=== PATIENT | female | born 1975 | race Caucasian/White ===

== ENCOUNTER 2019-01-30 05:12 | Emergency (ER) | payer OTHER ==
--- OUTSIDE RECORDS SUMMARY | 2019-01-30 05:16 | XMS REPORT | Clinical Summary ---
:1975 Author Organization [facility] Address [address] [place] [address] Care Team Providers Name Role Phone Asked, No Pcp Primary Care Provider Unavailable Allergies No Known Allergies Medications Medication Sig Dispensed Refills Start Date End Date Status divalproex (DEPAKOTE) 500 TK 1 T PO HS. 2 11/02/2018 Active MG EC tablet haloperidol (HALDOL) 20 MG TK 1 T PO HS. 2 12/10/2018 Active tablet Active Problems Not on file Encounters Date Type Specialty Care Team Description 01/29/2019 Emergency Emergency Medicine 01/10/2019 Emergency Emergency Medicine Marialuisa Orta, Acute right flank pain (Primary Dx) 12/29/2018 Emergency Emergency Medicine Naz Osei Chest pain, unspecified MD Shadi type (Primary Dx) 05/01/2018 Emergency Emergency Medicine after 01/29/2018 Social History Tobacco Use Types Packs/Day Years Used Date Never Smoker Smokeless Tobacco: Never Used Alcohol Use Drinks/Week oz/Week Comments Yes 1 Cans of beer 0.6 Sex Assigned at Date Recorded Not on file Job Start Date Occupation Industry Not on file Not on file Not on file Travel History Travel Start Travel End No recent travel history available. Last Filed Vital Signs Vital Sign Reading Time Taken Blood Pressure 153/67 01/10/2019 4:29 AM CDT Pulse 95 01/10/2019 4:29 AM CDT Temperature 36.4 C (97.6 F) 01/10/2019 4:29 AM CDT Respiratory Rate 18 01/10/2019 4:29 AM CDT Oxygen Saturation 100% 01/10/2019 4:29 AM CDT Inhaled Oxygen Concentration - - Weight - - Height 165.1 cm (5' 5") 05/01/2018 3:54 PM CDT Body Mass Index - - Plan of Treatment Health Maintenance Due Date Last Done Comments CERVICAL CANCER SCREENING 1998 INFLUENZA VACCINE 04/18/2019 Procedures Procedure Name Priority Date/Time Associated Comments Diagnosis ESTIMATED GFR STAT 01/10/2019 4:50 Results for this AM CDT procedure are in the results section. HCG QUALITATIVE, SERUM STAT 01/10/2019 4:50 Results for this SCREEN AM CDT procedure are in the results section. LIPASE LEVEL STAT 01/10/2019 4:50 Results for this AM CDT procedure are in the results section. AMYLASE LEVEL STAT 01/10/2019 4:50 Results for this AM CDT procedure are in the results section. COMPREHENSIVE METABOLIC STAT 01/10/2019 4:50 Results for this PANEL AM CDT procedure are in the results section. HC COMPLETE BLD COUNT STAT 01/10/2019 4:50 Results for this W/AUTO DIFF AM CDT procedure are in the results section. URINALYSIS SCREEN AND STAT 01/10/2019 4:20 Results for this MICROSCOPY, WITH REFLEX AM CDT procedure are in TO CULTURE the results section. URINE CULTURE STAT 01/10/2019 4:20 Results for this AM CDT procedure are in the results section. CT ANGIOGRAM PE CHEST STAT 12/29/2018 2:56 Results for this AM CDT procedure are in the results section. ESTIMATED GFR STAT 12/29/2018 1:32 Results for this AM CDT procedure are in the results section. ALCOHOL LEVEL, BLOOD STAT 12/29/2018 1:32 Results for this AM CDT procedure are in the results section. HCG QUALITATIVE, SERUM STAT 12/29/2018 1:32 Results for this SCREEN AM CDT procedure are in the results section. B NATRIURETIC PEPTIDE STAT 12/29/2018 1:32 Results for this AM CDT procedure are in the results section. TROPONIN STAT 12/29/2018 1:32 Results for this AM CDT procedure are in the results section. COMPREHENSIVE METABOLIC STAT 12/29/2018 1:32 Results for this PANEL AM CDT procedure are in the results section. HC COMPLETE BLD COUNT STAT 12/29/2018 1:32 Results for this W/AUTO DIFF AM CDT procedure are in the results section. ECG ED PRELIMINARY Routine 12/29/2018 12:46 Results for this INTERPRETATION AM CDT procedure are in the results section. ECG 12-LEAD STAT 12/28/2018 10:31 Results for this PM CDT procedure are in the results section. URINE DRUGS OF ABUSE STAT 12/28/2018 10:20 Results for this SCREEN PM CDT procedure are in the results section. URINALYSIS SCREEN AND STAT 12/28/2018 10:20 Results for this MICROSCOPY, WITH REFLEX PM CDT procedure are in TO CULTURE the results section. HCG QUALITATIVE, URINE STAT 12/28/2018 10:20 Results for this SCREEN PM CDT procedure are in the results section. URINE CULTURE STAT 12/28/2018 10:20 Results for this PM CDT procedure are in the results section. after 01/29/2018 Results Estimated GFR (01/10/2019 4:50 AM CDT)Only the most recent of2 resultswithin the time period is included. Estimated GFR >=90 mL/min/1.73 m2 [facility] CatergoryUnitsInterpretation G1 >=90 Normal or high G2 60-89Mildly decreased [id number] to moderately decreased [id number] to severely decreased G4 15-29Severely decreased G5 <15Kidney failure The eGFR was calculated using the Chronic Kidney Disease Epidemiology Collaboration (CKD-EPI) equation. Interpretation is based on recommendations of the National Kidney Foundation-Kidney Disease Outcomes Quality Initiative (NKF-KDOQI) published in 2014. Specimen Plasma specimen Performing Organization Address City/State/Zipcode Phone Number [facility] DEPARTMENT OF PATHOLOGY [address] [place] [address] AND GENOMIC MEDICINE [facility] [address] [place] [address] HOSPITAL CBC with platelet and differential (01/10/2019 4:50 AM CDT)Only the most recent of2 resultswithin the time period is included. WBC 8.0 4.5 - 11.0 k/uL [facility] RBC 4.15 (L) 4.20 - 5.50 m/uL [facility] HGB 13.0 12.0 - 16.0 g/dL [facility] HCT 39.3 37.0 - 47.0 % [facility] MCV 94.7 82.0 - 100.0 fL [facility] MCH 31.3 27.0 - 34.0 pg [facility] MCHC 33.1 31.0 - 37.0 g/dL [facility] RDW - SD 44.6 37.0 - 55.0 fL [facility] MPV 9.5 6.9 - 11.0 fL [facility] Platelet count 342 150 - 400 K/uL [facility] Nucleated RBC 0.00 /100 WBC [facility] Neutrophils 61.3 39.0 - 69.0 % [facility] Lymphocytes 25.7 25.0 - 45.0 % [facility] Monocytes 9.7 0.0 - 10.0 % [facility] Eosinophils 2.7 0.0 - 5.0 % [facility] Basophils 0.4 0.0 - 1.0 % [facility] Immature granulocytes 0.2 0.0 - 1.0 % [facility] Specimen Blood Performing Organization Address City/[facility] Phone Number [facility] DEPARTMENT OF PATHOLOGY [address] [place] [address] hCG qualitative, serum screen (01/10/2019 4:50 AM CDT)Only the most recent of2 resultswithin the time period is included. hCG qualitative, serum NegativeComment: [facility] Sensitivity of HCG test: [address] [place] [address] mIU/mL Specimen Blood Performing Organization Address City/[facility] Centercode Phone Number [facility] DEPARTMENT OF PATHOLOGY [address] [place] [address] Lipase level (01/10/2019 4:50 AM CDT) Lipase 26 13 - 60 U/L [facility] Specimen Plasma specimen Performing Organization Address City/[facility]/Zipcode Phone Number [facility] DEPARTMENT OF PATHOLOGY [address] [place] [address] Amylase level (01/10/2019 4:50 AM CDT) Amylase 23 13 - 73 U/L [facility] Specimen Plasma specimen Performing Organization Address City/[facility]/Zipcode Phone Number [facility] DEPARTMENT OF PATHOLOGY [facility] [place] [address] AND [facility] MEDICINE [facility] [id number] [place] [address] Comprehensive metabolic panel (01/10/2019 4:50 AM CDT)Only the most recent of2 resultswithin the time period is included. Sodium 137 135 - 148 mEq/L [facility] Potassium 4.0 3.5 - 5.0 mEq/L [facility] Chloride 103 98 - 112 mEq/L [facility] CO2 26 24 - 31 mEq/L [facility] Anion gap 8@ANIO 7 - 15 mEq/L [facility] BUN 9 6 - 20 mg/dL [facility] Creatinine 0.60 0.50 - 0.90 mg/dL [facility] Glucose 108 (H) 65 - 99 mg/dL [facility] Calcium 9.3 8.3 - 10.2 mg/dL [facility] Protein 7.3 6.3 - 8.3 g/dL [facility] Albumin 4.5 3.5 - 5.0 g/dL [facility] A/G ratio 1.6 0.7 - 3.8 [facility] Alkaline phosphatase 50 35 - 104 U/L [facility] AST 18 10 - 35 U/L [facility] ALT 12 5 - 50 U/L [facility] Total bilirubin 0.3 0.2 - 1.2 mg/dL [facility] Specimen Plasma specimen Performing Organization Address City/State/Zipcode Phone Number [facility] DEPARTMENT OF PATHOLOGY [address] [place] [address] AND [facility] [address] Urinalysis screen and microscopy, with reflex to culture (01/10/2019 4:20 AM CDT)Only the most recent of2 resultswithin the time period is included. Specimen site Clean catch [facility] Color, UA Straw [facility] Appearance, UA Clear [facility] Specific gravity, UA 1.003 1.001 - 1.030 [facility] pH, UA 8.0 5.0 - 9.0 [facility] Protein, UA Negative Negative [facility] Glucose, UA Negative Negative [facility] Ketones, UA Negative Negative [facility] Bilirubin, UA Negative Negative [facility] Blood, UA Small (A) Negative [facility] Nitrite, UA Negative Negative [facility] Urobilinogen, UA <2.0 <2.0 E.U./dL [facility] Leukocyte esterase, UA Negative Negative [facility] Epithelial cells, UA 3 /HPF [facility] WBC, UA <1 0 - 4 /HPF [facility] RBC, UA 1 0 - 5 /HPF [facility] Bacteria, UA None seen None seen [facility] Yeast, UA None seen [facility] Yeast with pseudohyphae, UA None seen [facility] Specimen Urine Performing Organization Address City/[facility]ode Phone Number [facility] DEPARTMENT OF PATHOLOGY [id number] [place] [address] Urine culture (01/10/2019 4:20 AM CDT)Only the most recent of2 resultswithin the time period is included. Urine culture SEE COMMENTComment: Bacteriuria [facility] screen negative. HOSPITAL Performing Organization Address City/[facility] Centercond Phone Number [facility] DEPARTMENT OF [facility]OLOGY [id number] [place] [address] Angiogram Pe Chest (12/29/2018 2:56 AM CDT) Narrative Performed At EXAMINATION: RADIANT CT ANGIOGRAM PE CHEST CLINICAL HISTORY: chest pain TECHNIQUE: CT angiographic images of the chest were obtained during intravenous administration of iodinated contrast. Computerized reformatted images and 3-D MIP images were also obtained and archived (CT pulmonary embolus protocol). CT imaging was performed with iterative reconstruction technique and/or automated exposure control to reduce radiation dose. COMPARISON: None. IMPRESSION: Subsegmental atelectasis is seen of the lung bases. No consolidations, effusions, or pneumothorax. The airway is patent. Heart size is normal. No mediastinal or hilar lymphadenopathy. Residual thymic tissue seen in the anterior mediastinum. No main branch, saddle region, or proximal segmental filling defects are seen to suggest pulmonary artery embolus. No aortic aneurysm, dissection, or pseudoaneurysm. Simple cyst is seen of interpolar region of left kidney. Small hiatal hernia. No acute osseous abnormalities. Old left clavicle fracture. Summary: No pulmonary embolus. No emergent findings. [facility]-[id number] Procedure Note Interface, Radiology Results Incoming - 12/29/2018 3:06 AM CDT EXAMINATION: CT ANGIOGRAM PE CHEST CLINICAL HISTORY: chest pain TECHNIQUE: CT angiographic images of the chest were obtained during intravenous administration of iodinated contrast. Computerized reformatted images and 3-D MIP images were also obtained and archived (CT pulmonary embolus protocol). CT imaging was performed with iterative reconstruction technique and/or automated exposure control to reduce radiation dose. COMPARISON: None. IMPRESSION: Subsegmental atelectasis is seen of the lung bases. No consolidations, effusions, or pneumothorax. The airway is patent. Heart size is normal. No mediastinal or hilar lymphadenopathy. Residual thymic tissue seen in the anterior mediastinum. No main branch, saddle region, or proximal segmental filling defects are seen to suggest pulmonary artery embolus. No aortic aneurysm, dissection, or pseudoaneurysm. Simple cyst is seen of interpolar region of left kidney. Small hiatal hernia. No acute osseous abnormalities. Old left clavicle fracture. Summary: No pulmonary embolus. No emergent findings. [facility]-[id number] Performing Organization Address City/[facility]ercode Phone Number [facility] [address] [place] [address] Troponin (12/29/2018 1:32 AM CDT) Troponin <0.30 0.00 - 0.30 ng/mL [facility] Comment: HOSPITAL 0.11 - 1.49 ng/mlMay indicate increased risk of acute coronary syndrome. >=1.5 ng/mlConsistent with acute myocardial infarction. The diagnostic value of a single normal or non-diagnostic result is questionable.Serial samples at 2-6 hour intervals are required to rule out acute myocardial injury. Specimen Plasma specimen Performing Organization Address City/State/Zipcode Phone Number [facility] DEPARTMENT OF PATHOLOGY [id number] [place] [address] AND [facility] MEDICINE [address] B natriuretic peptide (12/29/2018 1:32 AM CDT) BNP 4 0 - 100 pg/mL [facility] Specimen Blood Performing Organization Address City/[facility]ercode Phone Number [facility] DEPARTMENT OF PATHOLOGY [address] [place] [address] Alcohol level, blood (12/29/2018 1:32 AM CDT) Alcohol None Detected mg/dL [facility] Comment: HOSPITAL Normal None Detected Legal Intoxication in [place] mg/dL (0.08%) - Whole Blood Toxic Usqesjnntjexn777 mg/dL (0.2%) Potentially Ayuvp946 - 500 mg/dL (0.35 - 0.5%) Alcohol percent None Detected % [facility] Specimen Plasma specimen Performing Organization Address City/[facility] Centercode Phone Number [facility] DEPARTMENT OF PATHOLOGY [address] [place] [address] ECG ED Preliminary Interpretation - Not an Order (12/29/2018 12:46 AM CDT) Narrative Performed At Naz Osei MD 12/29/20186:22 AM ECG ED Preliminary Interpretation - Not an Order Performed by: Charlee Kaur PA-C Authorized by: Charlee Kaur PA-C ECG reviewed by ED Physician in the absence of a forms designer: yes Rate: ECG rate:107 ECG rate assessment: tachycardic Rhythm: Rhythm: sinus tachycardia QRS: QRS intervals:Normal Conduction: Conduction: normal ST segments: ST segments:Normal T waves: T waves: normal ECG 12 lead (12/28/2018 10:31 PM CDT) Ventricular rate 107 [facility] Atrial rate 107 [facility] WV interval 126 [facility] QRSD interval 76 [facility] QT interval 318 [facility] QTC interval 424 [facility] P axis 1 71 [facility] QRS axis 1 76 [facility] T wave axis 50 [facility] EKG impression Sinus tachycardia-Otherwise normal ECG-No [facility] previous ECGs available- Narrative Performed At Performing Organization Address City/State/Zipcode Phone Number [facility] [address] [place] [address] hCG qualitative, urine screen (12/28/2018 10:20 PM CDT) hCG qualitative, urine NegativeComment: [facility] Sensitivity of HCG test: [address] [place] [address] mIU/ml Specimen Urine Performing Organization Address City/[facility]/Zipcode Phone Number [facility] DEPARTMENT OF PATHOLOGY [id number] [place] [address] Urine drugs of abuse screen (12/28/2018 10:20 PM CDT) Amphetamine screen, urine Negative [facility] Barbiturate screen, urine Negative [facility] Benzodiazepine screen, Negative [facility] urine [facility] Cannabinoid screen, urine Negative [facility] Cocaine screen, urine Negative [facility] Methadone metabolite Negative [facility] ([facility]), urine [facility] Opiates screen, urine Negative [facility] Phencyclidine screen, urine Negative [facility] Tricyclic screen, urine Negative [facility] Comment: [facility] Drug screen minimum concentration of detectability Mmuljoiwmyix5549 ng/mL Barbiturates 200 ng/mL Oqnaizuenyqbope148 ng/mL Bseazwa867 ng/mL Owwlikazs823 ng/mL Veujdcq674 ng/mL Phencyclidine 25 ng/mL Xnoggljympzm24 ng/mL Oojclbwmvb3196 ng/mL Results are from screening tests and should only be used for medical evaluation. Drug testing for legal purposes requires definitive (or confirmatory) testing methods, which are available upon request. Contact the laboratory if definitive testing is required. Specimen Urine Performing Organization Address City/[facility]/Zipcode Phone Number [facility] DEPARTMENT OF PATHOLOGY [address] [place] [address] AND [facility] [id number] [place] [address] HOSPITAL after 01/29/2018 Insurance Payer Benefit Plan / Group Subscriber ID Type Phone Address MEDICARE MEDICARE PART A AND B xxxxxxxxxxx Medicare [place], [place] Advance Directives Patient has advance care planning documents on file. For more information, please contact:Paulo Adams[address] [place] [address]
--- OUTSIDE RECORDS SUMMARY | 2019-01-30 05:16 | XMS REPORT | Clinical Summary ---
:1975 Author Organization [facility] Address [address] [place] [address] Care Team Providers Name Role Phone Unavailable Primary Care Provider Unavailable Allergies No Known Allergies Medications Not on file Active Problems Not on file Encounters Date Type Specialty Care Team Description 01/28/2019 Emergency Emergency Medicine 01/28/2019 Travel after 01/29/2018 Social History Tobacco Use Types Packs/Day Years Used Date Never Assessed Sex Assigned at Date Recorded Not on file Job Start Date Occupation Industry Not on file Not on file Not on file Travel History Travel Start Travel End No recent travel history available. Last Filed Vital Signs Vital Sign Reading Time Taken Blood Pressure 130/96 01/28/2019 7:14 PM CDT Pulse 100 01/28/2019 7:14 PM CDT Temperature 37.1 C (98.8 F) 01/28/2019 7:14 PM CDT Respiratory Rate 18 01/28/2019 7:14 PM CDT Oxygen Saturation 99% 01/28/2019 7:14 PM CDT Inhaled Oxygen Concentration - - Weight 74.4 kg (164 lb) 01/28/2019 7:14 PM CDT Height 165.1 cm (5' 5") 01/28/2019 7:14 PM CDT Body Mass Index 27.29 01/28/2019 7:14 PM CDT Plan of Treatment Not on file Results Not on fileafter 01/29/2018
--- OUTSIDE RECORDS SUMMARY | 2019-01-30 05:17 | XMS REPORT ---
:1975 [facility] Address [address] [place] [address] [address] [place] [address] Care Team Providers Name Role Phone UNKNOWN, REFFERING Primary Care Provider Unavailable DR CONCETTA VAZQUEZ Unavailable Unavailable DR DEIDRA CLIFTON Unavailable Unavailable DR LOLA GARCIA Unavailable Unavailable Problems This patient has no known problems. Allergies, Adverse Reactions, Alerts This patient has no known allergies or adverse reactions. Medications This patient has no known medications. Encounters Start End Encounter Admission Attending Care Care Encounter Date/Time Date/Time Type Type Clinicians Facility Department ID 2019-01-15 2019-01-15 Emergency E CONCETTA VAZQUEZ [facility] [id number] 19:55:00 20:45:00 2018-08-13 2018-08-13 Emergency E ELODIA [facility] [id number] 17:42:00 21:50:00 [facility] 2018-06-11 2018-06-11 Emergency E CONCETTA VAZQUEZ [facility] [id number] 20:46:00 21:40:00 2018-03-30 2018-03-30 Emergency E CONCETTA VAZQUEZ [facility] [id number] 07:58:00 10:00:00 2018-02-14 2018-02-14 Emergency E CONCETTA VAZQUEZ [facility] [id number] 00:24:00 03:17:00 2017-10-17 2017-10-17 Emergency E ELODIA [facility] [id number] 11:44:00 15:17:00 [facility] 2017-06-10 2017-06-10 Emergency E [facility] [id number] 21:12:00 21:12:00 Results Test Description Test Time Test Comments Text Results Atomic Results Result Comments XR FOOT RIGHT COMPLETE 3 2019-01-15 20:39:14 LOCATION: A1EXAM: RIGHT FOOT 3 VIEWS VIEWSINDICATION: Broken glass in footCOMPARISON: None.TECHNIQUE: AP, lateral and oblique radiographs of the right footFINDINGS: No fracture, dislocation or other acute bony abnormality isidentified. Os tibialis externum incidentally noted. No radiopaque foreignbodies identified.IMPRESSION: No acute bony abnormality. No radiopaque foreign body is seen. XR FOOT LEFT COMPLETE 3 2019-01-15 20:33:31 LOCATION: A1EXAM: LEFT FOOT 3 VIEWS VIEWSINDICATION: Left foot painCOMPARISON: None.TECHNIQUE: AP, lateral and oblique radiographs of the left foot areinterpreted.FINDINGS: No fracture, dislocation or other acute bony abnormality isidentified. Joint spaces are preserved. Tarsal bones are normal in alignment.No soft tissue abnormality is identified.IMPRESSION: No abnormality identified. CT EXTREM UPPER W/O 2018-08-13 21:29:43 LOCATION: [id number]: 43-year-old CONTR RT female who presents with a comminuted fracture of thedistal radial metaphysis of the right wrist..COMMENT: Field 3Axial CT imaging of this patient's right wrist was obtained. Soft tissue andbone window images were submitted in the axial plane. Coronal and sagittal bonereconstructions were included. Radiographs of the right wrist obtained earlier this evening are available forcomparison.One or more of the following dose reduction techniques were used: Automatedexposure control, adjustment of the mA and/or kV according to the patient size,and/or utilization of iterative reconstruction technique.DLP: 100 mGy-cmCONTRAST: NoneFINDINGS:The study was obtained through fiberglass cast.Extensive comminuted fracturing is seen in the distal radial metaphysisextending into the articular surfaces of the radius.Also seen is a transverse extra in the base of the ulnar styloid process.No acute bony injury is seen in the carpal bones. Seen is correlation betweenthe manzanita bone and triquetrum and the proximal carpal row.IMPRESSION:Severely comminuted fracture is seen in the distal radial metaphysis of thispatient's right wrist as outlined above. Also seen is a transverse fracturethrough the base of the ulnar styloid process.No acute fracture is seen in the carpal bone anatomy. XR WRIST RIGHT COMPLETE 2018-08-13 19:15:06 LOCATION: A1EXAM: RIGHT WRIST 3 3 VIEWS VIEWSINDICATION: Right wrist pain, fracture.COMPARISON: None.TECHNIQUE: PA, lateral and oblique radiographs of the right wristFINDINGS: Acute comminuted fracture of the distal radius and ulnar styloidfracture. Dorsal angulation noted. No dislocation is seen. No subluxation. Bonycoalition across the lunate and triquetrum.IMPRESSION: Acute, a fracture of the distal radius with dorsal angulation.Ulnar styloid fracture. 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 URINALYSIS WITH MICRO 2018-03-30 08:58:00 Test Item Value Reference Range Comments COLOR (test code=COLU) YELLOW YELLOW CLARITY (test code=CLA) TURBID CLEAR GLUCOSE UR (test code=UA GLUCOSE) NEGATIVE NEGATIVE BILI UR (test code=BILE) NEGATIVE NEGATIVE KETONES UR (test code=RAVI) NEGATIVE NEGATIVE SP GRAVITY (test code=SPGR) 1.028 1.005-1.030 PH UR (test code=PH) 5.5 4.5-8.0 PROTEIN UR (test code=PU) TRACE NEGATIVE UROBIL UR (test code=UROQ) 0.2 EU/dL 0.2-1.0 NITRITE UR (test code=NITRITE) NEGATIVE NEGATIVE BLOOD UR (test code=UA BLOOD) 3+ NEGATIVE LEUK ES UR (test code=LEUK) NEGATIVE NEGATIVE WBC UR (test code=UWBC) 0 /HPF 0-5 RBC UR (test code=URBC) 7 /HPF 0-2 EPITH UR (test code=UEPC) MODERATE /LPF FEW BACTERIA UR (test code=UBACT) FEW /HPF NONE CAST UR (test code=CAST) /LPF NONE CRYSTAL UR (test code=CRYU) / LPF NONE MUCUS UR (test code=MUC) / HPF NONE AMORPH UR (test code=SHEREE) / HPF NONE TRICH UR (test code=UTRICH) /HPF NONE YEAST UR (test code=UY) /HPF NONE SPERM UR (test code=USPERM) /HPF NONE LIVER [id number] 08:55:00 Test Item Value Reference Range Comments BILI TOTAL (test code=11A) 0.6 mg/dL 0.2-1.0 BILI DIRCT (test code=12A) <0.1 mg/dL 0.0-0.2 BILI INDIR (test code=BILII) 0.0 mg/dL <=0.8 PROTEIN (test code=07D) 8.1 g/dL 6.4-8.2 ALBUMIN (test code=08D) 4.3 g/dL 3.5-4.8 GLOBULIN (test code=GLB) 3.8 g/dL 1.5-3.8 ALB/GLOB (test code=AGRR) 1.1 1.0-2.6 ALK PHOS (test code=35A) 47 IU/L 42-121 AST (test code=30A) 22 IU/L <=42 ALT (test code=31A) 23 IU/L <=78 BASIC METABOLIC [id number] 08:54:00 Test Item Value Reference Range Comments GLUCOSE (test code=06D) 92 mg/dL 75-100 SODIUM (test code=01A) 140 mmol/L 136-145 POTASSIUM (test code=01B) 4.2 mmol/L 3.6-5.1 CHLORIDE (test code=04A) 106 mmol/L 98-107 CO2 (test code=02A) 26 mmol/L 22-32 ANION GAP (test code=ANG) 12.2 mmol/L BUN (test code=05D) 13 mg/dL 7-18 CREATININE (test code=03E) 0.8 mg/dL 0.4-1.1 BUN/CREA (test code=BCR) 16 12-20 CALCIUM (test code=09D) 9.2 mg/dL 8.3-9.5 [id number] 08:54:00 Test Item Value Reference Range Comments ACETAMINPH (test code=94M) <2.0 ug/mL 10.0-30.0 ALCOHOL BLOOD (ETOH)2018-03-30 08:54:00 Test Item Value Reference Range Comments ETOH (test code=HALC) ETHANOL The result is to be used only for medical purposes ALCOHOL (test code=56A) <10 mg/dL <=10 AMMONIA [id number] 08:50:00 Test Item Value Reference Range Comments AMMONIA (test code=54A) 11 umol/L 11-32 [id number] 08:49:00 Test Item Value Reference Range Comments SALICYLATE (test code=94B) <1.7 mg/dL 2.8-20.0 DRUGS OF [id number] 08:48:00 Test Item Value Reference Range Comments DRUG SCRN (test code=HDOA) URINE DRUG SCREEN This is an unconfirmed screening result and should not be used for non-medical purposes CANNABINOD (test code=88C) Negative NEGATIVE AMPHETAMINE (test code=84A) Negative NEGATIVE BENZODIAZP (test code=86A) Negative NEGATIVE BARBITURAT (test code=85A) Negative NEGATIVE OPIATES (test code=92B) Negative NEGATIVE COCAINE (test code=87A) Negative NEGATIVE PHENCYCLID (test code=66A) Negative NEGATIVE METHADONE (test code=64A) Negative NEGATIVE DOAH (test code=DOAH) URINE DRUG SCREEN Cut-off values are as follows: ---- Cannabinoids 50 ng/mL Cocaine 300 ng/mL Amphetamines 1000 ng/mL Phencyclidine 25 ng/mL Benzodiazepines 200 ng.mL Methadone 300 ng/mL Barbiturates 200 ng/mL Opiates 2000 ng/mL CBC (INCLUDES AUTOMATED DIFFERENTIAL)2018-03-30 08:40:00 Test Item Value Reference Range Comments WBC (test code=WBC) 8.7 10\S\3/uL 4.5-11.0 RBC (test code=RBC) 4.31 10\S\6/uL 4.30-5.70 HGB (test code=HBG) 13.0 g/dL 12.0-15.5 HCT (test code=HCT) 39.4 % 35.0-44.0 MCV (test code=MCV) 91.4 fL 81.0-99.0 MCH (test code=MCH) 30.2 pg 27.0-31.0 MCHC (test code=MCHC) 33.0 g/dL 32.0-36.0 RDW (test code=RDW) 12.1 % 11.5-14.5 PLT (test code=PLT) 334 10\S\3/uL 130-400 MPV (test code=MPV) 9.6 fL 9.4-12.4 NEUTROP # (test code=NE#) 6.6 10\S\3/uL 1.6-8.0 LYMPH # (test code=LY#) 1.4 10\S\3/uL 1.1-3.5 MONOCYTE # (test code=MO#) 0.7 10\S\3/uL 0.0-1.1 EOSINOPH # (test code=EO#) 0.0 10\S\3/uL 0.0-0.7 BASOPHIL # (test code=BA#) 0.0 10\S\3/uL 0.0-0.3 IG # (test code=IG#) 0.02 10\S\3/uL 0.00-0.06 NRBC # (test code=NRBC#) 0.00 10\S\3/uL 0.00-0.01 NEUTROPH % (test code=NE%) 75.6 % 35.0-73.0 LYMPH % (test code=LY%) 15.9 % 20.0-55.0 MONO % (test code=MO%) 7.6 % 2.5-10.0 EOSINOPH % (test code=EO%) 0.5 % 0.0-5.0 BASOPHIL % (test code=BA%) 0.2 % 0.0-2.0 IG % (test code=IG%) 0.2 % 0.0-0.8 NRBC% (test code=NRBC%) 0.0 % 0.0-0.2 MANDIFF (test code=MDIFF) NO NO RBC MORPH (test code=RBCMOR) NORMAL URINALYSIS WITH [id number] 03:10:00 Test Item Value Reference Range Comments COLOR (test code=COLU) YELLOW YELLOW CLARITY (test code=CLA) CLOUDY CLEAR GLUCOSE UR (test code=UA GLUCOSE) NEGATIVE NEGATIVE BILI UR (test code=BILE) NEGATIVE NEGATIVE KETONES UR (test code=RAVI) 1+ NEGATIVE SP GRAVITY (test code=SPGR) 1.034 1.005-1.030 PH UR (test code=PH) 6.0 4.5-8.0 PROTEIN UR (test code=PU) 1+ NEGATIVE UROBIL UR (test code=UROQ) 0.2 EU/dL 0.2-1.0 NITRITE UR (test code=NITRITE) NEGATIVE NEGATIVE BLOOD UR (test code=UA BLOOD) 3+ NEGATIVE LEUK ES UR (test code=LEUK) NEGATIVE NEGATIVE WBC UR (test code=UWBC) 0 /HPF 0-5 RBC UR (test code=URBC) 10 /HPF 0-2 EPITH UR (test code=UEPC) FEW /LPF FEW BACTERIA UR (test code=UBACT) NONE /HPF NONE MUCUS UR (test code=MUC) FEW / HPF NONE CT STONE PROTOCOL [id number] 01:51:38CT ABDOMEN AND PELVIS WITHOUT CONTRASTLOCATION: R16.INDICATION: R10.9: UNSPECIFIED ABDOMINAL PAIN.COMPARISON: None.TECHNIQUE: Volumetric CT acquisition of the abdomen and pelvis withoutcontrast. Axial images were reconstructed. One or more of the followingradiation dose reduction techniques was used: automated exposure control,adjustment of the mA and/or kV according to patient size, and/or utilization ofiterative reconstruction technique.FINDINGS:The lung bases are clear. Visualized portions of theheart are normal.A subcentimeter hypodense lesion in the liver is too small to fullycharacterize anddoes not need follow- up unless clinically indicated. The liveris otherwise normal. The gallbladder, pancreas, spleen, and adrenal glands arenormal.There is a 3.2 cm left renal cyst. A subcentimeter hypodense lesion in the leftkidney is too small to fully characterize and does not need follow-up unlessclinically indicated. The kidneys , ureters, and bladder are otherwise normal.No uterine or ovarian abnormality is visualized. The small bowel, appendix, andcolon are normal.There is no lymphadenopathy, free air or fluid, or focal osseous abnormality inthe abdomen or pelvis.IMPRESSION:No acute abnormality in the abdomen or pelvis. No evidence of urolithiasis.AMYLASE AND [id number] 01:21:00 Test Item Value Reference Range Comments AMYLASE (test code=10A) 35 U/L 28-100 LIPASE (test code=60A) 100 IU/L 73-393 BASIC METABOLIC [id number] 01:21:00 Test Item Value Reference Range Comments GLUCOSE (test code=06D) 107 mg/dL 75-100 SODIUM (test code=01A) 138 mmol/L 136-145 POTASSIUM (test code=01B) 3.8 mmol/L 3.6-5.1 CHLORIDE (test code=04A) 102 mmol/L 98-107 CO2 (test code=02A) 29 mmol/L 22-32 ANION GAP (test code=ANG) 10.8 mmol/L BUN (test code=05D) 17 mg/dL 7-18 CREATININE (test code=03E) 0.9 mg/dL 0.4-1.1 BUN/CREA (test code=BCR) 19 12-20 CALCIUM (test code=09D) 9.7 mg/dL 8.3-9.5 LIVER [id number] 01:21:00 Test Item Value Reference Range Comments BILI TOTAL (test code=11A) 0.3 mg/dL 0.2-1.0 BILI DIRCT (test code=12A) 0.1 mg/dL 0.0-0.2 BILI INDIR (test code=BILII) 0.2 mg/dL <=0.8 PROTEIN (test code=07D) 7.6 g/dL 6.4-8.2 ALBUMIN (test code=08D) 4.1 g/dL 3.5-4.8 GLOBULIN (test code=GLB) 3.5 g/dL 1.5-3.8 ALB/GLOB (test code=AGRR) 1.2 1.0-2.6 ALK PHOS (test code=35A) 50 IU/L 42-121 AST (test code=30A) 17 IU/L <=42 ALT (test code=31A) 19 IU/L <=78 SERUM [id number] 01:12:00 Test Item Value Reference Range Comments PREG SRM (test code=PGS) NEGATIVE NEGATIVE CBC (INCLUDES AUTOMATED DIFFERENTIAL)2018-02-14 01:05:00 Test Item Value Reference Range Comments WBC (test code=WBC) 9.2 10\S\3/uL 4.5-11.0 RBC (test code=RBC) 4.31 10\S\6/uL 4.30-5.70 HGB (test code=HBG) 13.2 g/dL 12.0-15.5 HCT (test code=HCT) 39.5 % 35.0-44.0 MCV (test code=MCV) 91.6 fL 81.0-99.0 MCH (test code=MCH) 30.6 pg 27.0-31.0 MCHC (test code=MCHC) 33.4 g/dL 32.0-36.0 RDW (test code=RDW) 12.1 % 11.5-14.5 PLT (test code=PLT) 302 10\S\3/uL 130-400 MPV (test code=MPV) 9.7 fL 9.4-12.4 NEUTROP # (test code=NE#) 5.9 10\S\3/uL 1.6-8.0 LYMPH # (test code=LY#) 2.4 10\S\3/uL 1.1-3.5 MONOCYTE # (test code=MO#) 0.8 10\S\3/uL 0.0-1.1 EOSINOPH # (test code=EO#) 0.1 10\S\3/uL 0.0-0.7 BASOPHIL # (test code=BA#) 0.0 10\S\3/uL 0.0-0.3 IG # (test code=IG#) 0.02 10\S\3/uL 0.00-0.06 NRBC # (test code=NRBC#) 0.00 10\S\3/uL 0.00-0.01 NEUTROPH % (test code=NE%) 64.6 % 35.0-73.0 LYMPH % (test code=LY%) 26.2 % 20.0-55.0 MONO % (test code=MO%) 8.1 % 2.5-10.0 EOSINOPH % (test code=EO%) 0.5 % 0.0-5.0 BASOPHIL % (test code=BA%) 0.4 % 0.0-2.0 IG % (test code=IG%) 0.2 % 0.0-0.8 NRBC% (test code=NRBC%) 0.0 % 0.0-0.2 MANDIFF (test code=MDIFF) NO NO RBC MORPH (test code=RBCMOR) NORMAL CBC (INCLUDES AUTOMATED DIFFERENTIAL)2017-10-17 14:50:00 Test Item Value Reference Range Comments WBC (test code=WBC) 8.5 10\S\3/uL 4.5-11.0 RBC (test code=RBC) 4.58 10\S\6/uL 4.30-5.70 HGB (test code=HBG) 13.8 g/dL 12.0-15.5 HCT (test code=HCT) 40.7 % 35.0-44.0 MCV (test code=MCV) 88.9 fL 81.0-99.0 MCH (test code=MCH) 30.1 pg 27.0-31.0 MCHC (test code=MCHC) 33.9 g/dL 32.0-36.0 RDW (test code=RDW) 12.4 % 11.5-14.5 PLT (test code=PLT) 328 10\S\3/uL 130-400 MPV (test code=MPV) 9.7 fL 9.4-12.4 NEUTROP # (test code=NE#) 5.3 10\S\3/uL 1.6-8.0 LYMPH # (test code=LY#) 2.3 10\S\3/uL 1.1-3.5 MONOCYTE # (test code=MO#) 0.6 10\S\3/uL 0.0-1.1 EOSINOPH # (test code=EO#) 0.1 10\S\3/uL 0.0-0.7 BASOPHIL # (test code=BA#) 0.1 10\S\3/uL 0.0-0.3 IG # (test code=IG#) 0.03 10\S\3/uL 0.00-0.06 NRBC # (test code=NRBC#) 0.00 10\S\3/uL 0.00-0.01 NEUTROPH % (test code=NE%) 62.7 % 35.0-73.0 LYMPH % (test code=LY%) 27.6 % 20.0-55.0 MONO % (test code=MO%) 7.0 % 2.5-10.0 EOSINOPH % (test code=EO%) 1.7 % 0.0-5.0 BASOPHIL % (test code=BA%) 0.6 % 0.0-2.0 IG % (test code=IG%) 0.4 % 0.0-0.8 NRBC% (test code=NRBC%) 0.0 % 0.0-0.2 MANDIFF (test code=MDIFF) NO NO RBC MORPH (test code=RBCMOR) NORMAL CT ABDOMEN AND PELVIS W/O [id number] 14:13:41CT abdomen and pelvis without contrastLocation Code: [id number] HISTORY: right flank painCOMPARISON: NoneTechnique: Helical CT of the abdomen and pelvis was performed withoutintravenous contrast. Thin section axial, sagittal and coronal images wereobtained. One or more of the following dose reduction techniques were used: Automated exposure control, adjustment of the mA and or KV according to patientsize, and/or utilization of iterative reconstruction technique. DLP: 684mGy-cm.FINDINGS:The lung basesare clear. The liver, gallbladder, adrenal glands, kidneys, pancreas, and spleen aregrossly unremarkable. 3.2 cm left renal cyst noted. No nephrolithiasis orobstruction.The unopacified loops of bowel demonstrate no focal thickening or dilatation.The appendix is visualized and is normal. There is no free peritoneal air orfluid. The abdominal aorta is normal in caliber and contour. There is noretroperitoneal mass or fluid collection. The urinary bladder is unremarkable.There is no pelvic mass or fluid collection. No evidence of diverticulitis.The bones, skin, and surrounding soft tissues are unremarkable.IMPRESSION: No evidence of acute intra -abdominal or pelvic pathology.URINALYSIS WITH [id number] 13:50:00 Test Item Value Reference Range Comments COLOR (test code=COLU) RED YELLOW CLARITY (test code=CLA) BLOODY CLEAR GLUCOSE UR (test code=UA GLUCOSE) NEGATIVE NEGATIVE BILI UR (test code=BILE) NEGATIVE NEGATIVE KETONES UR (test code=RAVI) NEGATIVE NEGATIVE SP GRAVITY (test code=SPGR) 1.013 1.005-1.030 PH UR (test code=PH) 6.0 4.5-8.0 PROTEIN UR (test code=PU) 2+ NEGATIVE UROBIL UR (test code=UROQ) 0.2 EU/dL 0.2-1.0 NITRITE UR (test code=NITRITE) NEGATIVE NEGATIVE BLOOD UR (test code=UA BLOOD) 3+ NEGATIVE LEUK ES UR (test code=LEUK) 1+ NEGATIVE WBC UR (test code=UWBC) 7 /HPF 0-5 RBC UR (test code=URBC) >100 /HPF 0-2 EPITH UR (test code=UEPC) FEW /LPF FEW BACTERIA UR (test code=UBACT) FEW /HPF NONE CAST UR (test code=CAST) /LPF NONE CRYSTAL UR (test code=CRYU) / LPF NONE MUCUS UR (test code=MUC) / HPF NONE AMORPH UR (test code=SHEREE) / HPF NONE TRICH UR (test code=UTRICH) /HPF NONE YEAST UR (test code=UY) /HPF NONE SPERM UR (test code=USPERM) /HPF NONE AMYLASE AND [id number] 13:48:00 Test Item Value Reference Range Comments AMYLASE (test code=10A) 39 U/L 28-100 LIPASE (test code=60A) 179 IU/L 73-393 COMPREHENSIVE METABOLIC [id number] 13:48:00 Test Item Value Reference Range Comments GLUCOSE (test code=06D) 94 mg/dL 75-100 SODIUM (test code=01A) 140 mmol/L 136-145 POTASSIUM (test code=01B) 3.8 mmol/L 3.6-5.1 CHLORIDE (test code=04A) 105 mmol/L 98-107 CO2 (test code=02A) 29 mmol/L 22-32 ANION GAP (test code=ANG) 9.8 mmol/L BUN (test code=05D) 8 mg/dL 7-18 CREATININE (test code=03E) 0.6 mg/dL 0.4-1.1 BUN/CREA (test code=BCR) 13 12-20 CALCIUM (test code=09D) 8.7 mg/dL 8.3-9.5 BILI TOTAL (test code=11A) 0.2 mg/dL 0.2-1.0 PROTEIN (test code=07D) 7.0 g/dL 6.4-8.2 ALBUMIN (test code=08D) 3.6 g/dL 3.5-4.8 GLOBULIN (test code=GLB) 3.4 g/dL 1.5-3.8 ALB/GLOB (test code=AGRR) 1.1 1.0-2.6 ALK PHOS (test code=35A) 50 IU/L 42-121 AST (test code=30A) 13 IU/L <=42 ALT (test code=31A) 17 IU/L <=78 SERUM [id number] 13:44:00 Test Item Value Reference Range Comments PREG SRM (test code=PGS) NEGATIVE NEGATIVE CBC (INCLUDES AUTOMATED DIFFERENTIAL)2017-08-09 13:34:00 Test Item Value Reference Range Comments WBC (test code=WBC) 6.1 10\S\3/uL 4.5-11.0 RBC (test code=RBC) 4.15 10\S\6/uL 4.30-5.70 HGB (test code=HBG) 12.6 g/dL 12.0-15.5 HCT (test code=HCT) 37.5 % 35.0-44.0 MCV (test code=MCV) 90.4 fL 81.0-99.0 MCH (test code=MCH) 30.4 pg 27.0-31.0 MCHC (test code=MCHC) 33.6 g/dL 32.0-36.0 RDW (test code=RDW) 12.9 % 11.5-14.5 PLT (test code=PLT) 315 10\S\3/uL 130-400 MPV (test code=MPV) 9.3 fL 9.4-12.4 NEUTROP # (test code=NE#) 3.2 10\S\3/uL 1.6-8.0 LYMPH # (test code=LY#) 2.2 10\S\3/uL 1.1-3.5 MONOCYTE # (test code=MO#) 0.4 10\S\3/uL 0.0-1.1 EOSINOPH # (test code=EO#) 0.2 10\S\3/uL 0.0-0.7 BASOPHIL # (test code=BA#) 0.0 10\S\3/uL 0.0-0.3 IG # (test code=IG#) 0.01 10\S\3/uL 0.00-0.06 NRBC # (test code=NRBC#) 0.00 10\S\3/uL 0.00-0.01 NEUTROPH % (test code=NE%) 52.8 % 35.0-73.0 LYMPH % (test code=LY%) 36.8 % 20.0-55.0 MONO % (test code=MO%) 6.7 % 2.5-10.0 EOSINOPH % (test code=EO%) 3.0 % 0.0-5.0 BASOPHIL % (test code=BA%) 0.5 % 0.0-2.0 IG % (test code=IG%) 0.2 % 0.0-0.8 NRBC% (test code=NRBC%) 0.0 % 0.0-0.2 MANDIFF (test code=MDIFF) NO NO RBC MORPH (test code=RBCMOR) NORMAL CT HEAD W/O [id number] 02:18:31AFTER HOURS SERVICE ON: 06/17/2017 2:12 AMCT Scan of the Brain Without ContrastLocation Code [id number]: assaultTechnique: Scans were performed on a helical scanner pre IV contrast only. Thestudy is limited secondary to lack of intravenous contrast, particularly forevaluation of masses. CT images wereperformed within 24 hours at arrival tot facility. One or more of the following dose reduction techniques were used: Automatedexposure control, adjustment of the mA and/or kV according to patient size,and/or utilization of iterative reconstruction technique.Findings: Study is limited with streak artifact. There is no hydrocephalus. Basalcisterns are patent. There is no intracranial hyperdense hemorrhage. There isno midline shift or mass effect. No effacement of the vasquez- white matterjunction to indicate acute infarction. Large area of encephalomalacia is notedin the right temporal and parietal lobe likely from a prior infarct. Impression:1. No acute intracranial CT findings.2. Old right MCA infarct.THYROID PANEL/SCREEN (TSH)2017-06-08 12:16:00 Test Item Value Reference Range Comments TSH (test code=A57) 0.693 uIU/mL 0.358-3.740 DRUGS OF [id number] 12:03:00 Test Item Value Reference Range Comments DRUG SCRN (test code=HDOA) URINE DRUG SCREEN This is an unconfirmed screening result and should not be used for non-medical purposes CANNABINOD (test code=88C) Negative NEGATIVE AMPHETAMINE (test code=84A) Negative NEGATIVE BENZODIAZP (test code=86A) Negative NEGATIVE BARBITURAT (test code=85A) Negative NEGATIVE OPIATES (test code=92B) Negative NEGATIVE COCAINE (test code=87A) Negative NEGATIVE PHENCYCLID (test code=66A) Negative NEGATIVE METHADONE (test code=64A) Negative NEGATIVE DOAH (test code=DOAH) URINE DRUG SCREEN Cut-off values are as follows: ---- Cannabinoids 50 ng/mL Cocaine 300 ng/mL Amphetamines 1000 ng/mL Phencyclidine 25 ng/mL Benzodiazepines 200 ng.mL Methadone 300 ng/mL Barbiturates 200 ng/mL Opiates 2000 ng/mL URINALYSIS WITH [id number] 12:03:00 Test Item Value Reference Range Comments COLOR (test code=COLU) YELLOW YELLOW CLARITY (test code=CLA) CLEAR CLEAR GLUCOSE UR (test code=UA GLUCOSE) NEGATIVE NEGATIVE BILI UR (test code=BILE) NEGATIVE NEGATIVE KETONES UR (test code=RAVI) TRACE NEGATIVE SP GRAVITY (test code=SPGR) 1.007 1.005-1.030 PH UR (test code=PH) 7.5 4.5-8.0 PROTEIN UR (test code=PU) NEGATIVE NEGATIVE UROBIL UR (test code=UROQ) 0.2 EU/dL 0.2-1.0 NITRITE UR (test code=NITRITE) NEGATIVE NEGATIVE BLOOD UR (test code=UA BLOOD) 3+ NEGATIVE LEUK ES UR (test code=LEUK) TRACE NEGATIVE WBC UR (test code=UWBC) 2 /HPF 0-5 RBC UR (test code=URBC) 4 /HPF 0-2 EPITH UR (test code=UEPC) FEW /LPF FEW BACTERIA UR (test code=UBACT) NONE /HPF NONE CAST UR (test code=CAST) /LPF NONE CRYSTAL UR (test code=CRYU) / LPF NONE MUCUS UR (test code=MUC) / HPF NONE AMORPH UR (test code=SHEREE) / HPF NONE TRICH UR (test code=UTRICH) /HPF NONE YEAST UR (test code=UY) /HPF NONE SPERM UR (test code=USPERM) /HPF NONE COMPREHENSIVE METABOLIC [id number] 11:58:00 Test Item Value Reference Range Comments GLUCOSE (test code=06D) 102 mg/dL 75-100 SODIUM (test code=01A) 140 mmol/L 136-145 POTASSIUM (test code=01B) 3.8 mmol/L 3.6-5.1 CHLORIDE (test code=04A) 105 mmol/L 98-107 CO2 (test code=02A) 27 mmol/L 22-32 ANION GAP (test code=ANG) 11.8 mmol/L BUN (test code=05D) 9 mg/dL 7-18 CREATININE (test code=03E) 0.8 mg/dL 0.4-1.1 BUN/CREA (test code=BCR) 11 12-20 CALCIUM (test code=09D) 8.9 mg/dL 8.3-9.5 BILI TOTAL (test code=11A) 0.4 mg/dL 0.2-1.0 PROTEIN (test code=07D) 7.3 g/dL 6.4-8.2 ALBUMIN (test code=08D) 3.9 g/dL 3.5-4.8 GLOBULIN (test code=GLB) 3.4 g/dL 1.5-3.8 ALB/GLOB (test code=AGRR) 1.1 1.0-2.6 ALK PHOS (test code=35A) 44 IU/L 42-121 AST (test code=30A) 13 IU/L <=42 ALT (test code=31A) 19 IU/L <=78 CARDIAC [id number] 11:58:00 Test Item Value Reference Range Comments TROPONIN I (test code=A84) <0.015 ng/mL 0.000-0.045 CKMB (test code=A49) <1.0 ng/mL <=3.6 CPK (test code=32A) 117 IU/L 26-192 SERUM [id number] 11:48:00 Test Item Value Reference Range Comments PREG SRM (test code=PGS) NEGATIVE NEGATIVE PRO TIME AND [id number] 11:46:00 Test Item Value Reference Range Comments PT (test code=TT) 13.0 s 9.8-13.6 INR (test code=INR) 1.2 INRH (test code=INRH) SUGGESTED THERAPEUTIC RANGE FOR INR: 2.5 - 3.5 For Patients with Prosthetic Valves or Patients with recurrent Thromboembolic Events 2.0 - 3.0 For Most Other Applications PTT (test code=PTT) 28.5 s 20.2-38.0 PTTH (test code=PTTH) To monitor the effectiveness of heparin, we offer the Anti-Xa (Heparin Assay). It can be used for either unfractionated or LMW Heparin. Order Code is ANTI-XA CBC (INCLUDES AUTOMATED DIFFERENTIAL)2017-06-08 11:41:00 Test Item Value Reference Range Comments WBC (test code=WBC) 6.0 10\S\3/uL 4.5-11.0 RBC (test code=RBC) 4.09 10\S\6/uL 4.30-5.70 HGB (test code=HBG) 12.4 g/dL 12.0-15.5 HCT (test code=HCT) 36.3 % 35.0-44.0 MCV (test code=MCV) 88.8 fL 81.0-99.0 MCH (test code=MCH) 30.3 pg 27.0-31.0 MCHC (test code=MCHC) 34.2 g/dL 32.0-36.0 RDW (test code=RDW) 12.7 % 11.5-14.5 PLT (test code=PLT) 324 10\S\3/uL 130-400 MPV (test code=MPV) 9.5 fL 9.4-12.4 NEUTROP # (test code=NE#) 3.5 10\S\3/uL 1.6-8.0 LYMPH # (test code=LY#) 1.9 10\S\3/uL 1.1-3.5 MONOCYTE # (test code=MO#) 0.5 10\S\3/uL 0.0-1.1 EOSINOPH # (test code=EO#) 0.0 10\S\3/uL 0.0-0.7 BASOPHIL # (test code=BA#) 0.0 10\S\3/uL 0.0-0.3 IG # (test code=IG#) 0.01 10\S\3/uL 0.00-0.06 NRBC # (test code=NRBC#) 0.00 10\S\3/uL 0.00-0.01 NEUTROPH % (test code=NE%) 59.0 % 35.0-73.0 LYMPH % (test code=LY%) 31.4 % 20.0-55.0 MONO % (test code=MO%) 8.2 % 2.5-10.0 EOSINOPH % (test code=EO%) 0.7 % 0.0-5.0 BASOPHIL % (test code=BA%) 0.5 % 0.0-2.0 IG % (test code=IG%) 0.2 % 0.0-0.8 NRBC% (test code=NRBC%) 0.0 % 0.0-0.2 MANDIFF (test code=MDIFF) NO NO RBC MORPH (test code=RBCMOR) NORMAL [id number] 20:52:00 Test Item Value Reference Range Comments ACETAMINPH (test code=94M) <10.0 ug/mL 10.0-30.0 ALCOHOL BLOOD (ETOH)2017-04-10 20:51:00 Test Item Value Reference Range Comments ALCOHOL (test code=56A) <10 mg/dL <=10 Ref Range Change (test Please note the change in code=REF RANGE) reference range COMPREHENSIVE METABOLIC [id number] 20:46:00 Test Item Value Reference Range Comments GLUCOSE (test code=06D) 109 mg/dL 75-100 SODIUM (test code=01A) 139 mmol/L 136-145 POTASSIUM (test code=01B) 3.8 mmol/L 3.6-5.1 CHLORIDE (test code=04A) 104 mmol/L 98-107 CO2 (test code=02A) 25 mmol/L 22-32 ANION GAP (test code=ANG) 13.8 mmol/L BUN (test code=05D) 11 mg/dL 7-18 CREATININE (test code=03E) 0.7 mg/dL 0.4-1.1 BUN/CREA (test code=BCR) 17 12-20 CALCIUM (test code=09D) 9.4 mg/dL 8.3-9.5 BILI TOTAL (test code=11A) 0.3 mg/dL 0.2-1.0 PROTEIN (test code=07D) 7.4 g/dL 6.4-8.2 ALBUMIN (test code=08D) 4.0 g/dL 3.5-4.8 GLOBULIN (test code=GLB) 3.4 g/dL 1.5-3.8 ALB/GLOB (test code=AGRR) 1.2 1.0-2.6 ALK PHOS (test code=35A) 44 IU/L 42-121 AST (test code=30A) 18 IU/L <=42 ALT (test code=31A) 24 IU/L <=78 [id number] 20:41:00 Test Item Value Reference Range Comments SALICYLATE (test code=94B) <1.7 mg/dL 2.8-20.0 DRUGS OF [id number] 20:36:00 Test Item Value Reference Range Comments DRUG SCRN (test code=HDOA) URINE DRUG SCREEN This is an unconfirmed screening result and should not be used for non-medical purposes CANNABINOD (test code=88C) Negative NEGATIVE AMPHETAMINE (test code=84A) Negative NEGATIVE BENZODIAZP (test code=86A) Negative NEGATIVE BARBITURAT (test code=85A) Negative NEGATIVE OPIATES (test code=92B) Negative NEGATIVE COCAINE (test code=87A) Negative NEGATIVE PHENCYCLID (test code=66A) Negative NEGATIVE METHADONE (test code=64A) Negative NEGATIVE DOAH (test code=DOAH) URINE DRUG SCREEN Cut-off values are as follows: ---- Cannabinoids 50 ng/mL Cocaine 300 ng/mL Amphetamines 1000 ng/mL Phencyclidine 25 ng/mL Benzodiazepines 200 ng.mL Methadone 300 ng/mL Barbiturates 200 ng/mL Opiates 2000 ng/mL SERUM [id number] 20:35:00 Test Item Value Reference Range Comments PREG SRM (test code=PGS) NEGATIVE NEGATIVE [id number] 20:29:00 Test Item Value Reference Range Comments COLOR (test code=COLU) YELLOW YELLOW CLARITY (test code=CLA) CLEAR CLEAR GLUCOSE UR (test code=UA GLUCOSE) NEGATIVE NEGATIVE BILI UR (test code=BILE) NEGATIVE NEGATIVE KETONES UR (test code=RAVI) NEGATIVE NEGATIVE SP GRAVITY (test code=SPGR) 1.006 1.005-1.030 PH UR (test code=PH) 7.0 4.5-8.0 PROTEIN UR (test code=PU) NEGATIVE NEGATIVE UROBIL UR (test code=UROQ) 0.2 EU/dL 0.2-1.0 NITRITE UR (test code=NITRITE) NEGATIVE NEGATIVE BLOOD UR (test code=UA BLOOD) NEGATIVE NEGATIVE LEUK ES UR (test code=LEUK) NEGATIVE NEGATIVE CBC (INCLUDES AUTOMATED DIFFERENTIAL)2017-04-10 20:28:00 Test Item Value Reference Range Comments WBC (test code=WBC) 6.7 10\S\3/uL 4.5-11.0 RBC (test code=RBC) 4.31 10\S\6/uL 4.30-5.70 HGB (test code=HBG) 13.1 g/dL 12.0-15.5 HCT (test code=HCT) 38.2 % 35.0-44.0 MCV (test code=MCV) 88.6 fL 81.0-99.0 MCH (test code=MCH) 30.4 pg 27.0-31.0 MCHC (test code=MCHC) 34.3 g/dL 32.0-36.0 RDW (test code=RDW) 12.2 % 11.5-14.5 PLT (test code=PLT) 300 10\S\3/uL 130-400 MPV (test code=MPV) 10.0 fL 9.4-12.4 NEUTROP # (test code=NE#) 2.9 10\S\3/uL 1.6-8.0 LYMPH # (test code=LY#) 2.8 10\S\3/uL 1.1-3.5 MONOCYTE # (test code=MO#) 0.6 10\S\3/uL 0.0-1.1 EOSINOPH # (test code=EO#) 0.2 10\S\3/uL 0.0-0.7 BASOPHIL # (test code=BA#) 0.0 10\S\3/uL 0.0-0.3 IG # (test code=IG#) 0.01 10\S\3/uL 0.00-0.06 NRBC # (test code=NRBC#) 0.00 10\S\3/uL 0.00-0.01 NEUTROPH % (test code=NE%) 44.1 % 35.0-73.0 LYMPH % (test code=LY%) 42.6 % 20.0-55.0 MONO % (test code=MO%) 9.6 % 2.5-10.0 EOSINOPH % (test code=EO%) 2.9 % 0.0-5.0 BASOPHIL % (test code=BA%) 0.6 % 0.0-2.0 IG % (test code=IG%) 0.2 % 0.0-0.8 NRBC% (test code=NRBC%) 0.0 % 0.0-0.2 MANDIFF (test code=MDIFF) NO NO
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
== END 2019-01-30 06:17 | disposition home or self-care (01) ==
LOC: ER 05:12
DX: R21 Rash and other nonspecific skin eruption (principal); Z88.0 Allergy status to penicillin
CPT/HCPCS: 99283

== ENCOUNTER 2023-06-21 14:47 | Emergency (ER) | payer OTHER ==
--- OUTSIDE RECORDS SUMMARY | 2023-06-21 14:52 | XMS REPORT | Continuity of Care Document ---
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 (test code = BILE) NEGATIVE NEGATIVE KETONES UR (test code = RAVI) TRACE NEGATIVE A SP GRAVITY (test code = SPGR) 1.007 1.005-1.030 PH UR (test code = PH) 7.5 4.5-8.0 PROTEIN UR (test code = PU) NEGATIVE NEGATIVE UROBIL UR (test code = UROQ) 0.2 EU/dL 0.2-1.0 NITRITE UR (test code = NITRITE) NEGATIVE NEGATIVE BLOOD UR (test code = UA BLOOD) 3+ NEGATIVE A LEUK ES UR (test code = LEUK) TRACE NEGATIVE A WBC UR (test code = UWBC) 2 /HPF 0-5 RBC UR (test code = URBC) 4 /HPF 0-2 H EPITH UR (test code = UEPC) FEW /LPF FEW BACTERIA UR (test code = UBACT) NONE /HPF NONE CAST UR (test code = CAST) /LPF NONE CRYSTAL UR (test code = CRYU) / LPF NONE MUCUS UR (test code = MUC) / HPF NONE AMORPH UR (test code = SHEREE) / HPF NONE TRICH UR (test code = UTRICH) /HPF NONE YEAST UR (test code = UY) /HPF NONE SPERM UR (test code = USPERM) /HPF NONE COMPREHENSIVE METABOLIC [id number] 11:58:00 Test Item Value Reference Range Interpretation Comments GLUCOSE (test code = 06D) 102 mg/dL 75-100 H SODIUM (test code = 01A) 140 mmol/L 136-145 POTASSIUM (test code = 01B) 3.8 mmol/L 3.6-5.1 CHLORIDE (test code = 04A) 105 mmol/L 98-107 CO2 (test code = 02A) 27 mmol/L 22-32 ANION GAP (test code = ANG) 11.8 mmol/L BUN (test code = 05D) 9 mg/dL 7-18 CREATININE (test code = 03E) 0.8 mg/dL 0.4-1.1 BUN/CREA (test code = BCR) 11 12-20 L CALCIUM (test code = 09D) 8.9 mg/dL 8.3-9.5 BILI TOTAL (test code = 11A) 0.4 mg/dL 0.2-1.0 PROTEIN (test code = 07D) 7.3 g/dL 6.4-8.2 ALBUMIN (test code = 08D) 3.9 g/dL 3.5-4.8 GLOBULIN (test code = GLB) 3.4 g/dL 1.5-3.8 ALB/GLOB (test code = AGRR) 1.1 1.0-2.6 ALK PHOS (test code = 35A) 44 IU/L 42-121 AST (test code = 30A) 13 IU/L <=42 ALT (test code = 31A) 19 IU/L <=78 CARDIAC [id number] 11:58:00 Test Item Value Reference Range Interpretation Comments TROPONIN I (test code = A84) <0.015 ng/mL 0.000-0.045 CKMB (test code = A49) <1.0 ng/mL <=3.6 CPK (test code = 32A) 117 IU/L 26-192 SERUM [id number] 11:48:00 Test Item Value Reference Range Interpretation Comments PREG SRM (test code = PGS) NEGATIVE NEGATIVE PRO TIME AND [id number] 11:46:00 Test Item Value Reference Range Interpretation Comments PT (test code = 13.0 s 9.8-13.6 TT) INR (test code = 1.2 INR) INRH (test code = SUGGESTED THERAPEUTIC INRH) RANGE FOR INR: 2.5 - 3.5 For Patients with Prosthetic Valves or Patients with recurrent Thromboembolic Events 2.0 - 3.0 For Most Other Applications PTT (test code = 28.5 s 20.2-38.0 PTT) PTTH (test code = To monitor the PTTH) effectiveness of heparin, we offer the Anti-Xa (Heparin Assay). It can be used for either unfractionated or LMW Heparin. Order Code is ANTI-XA CBC (INCLUDES AUTOMATED DIFFERENTIAL)2017-06-08 11:41:00 Test Item Value Reference Range Interpretation Comments WBC (test code = WBC) 6.0 10\S\3/uL 4.5-11.0 RBC (test code = RBC) 4.09 10\S\6/uL 4.30-5.70 L HGB (test code = HBG) 12.4 g/dL 12.0-15.5 HCT (test code = HCT) 36.3 % 35.0-44.0 MCV (test code = MCV) 88.8 fL 81.0-99.0 MCH (test code = MCH) 30.3 pg 27.0-31.0 MCHC (test code = MCHC) 34.2 g/dL 32.0-36.0 RDW (test code = RDW) 12.7 % 11.5-14.5 PLT (test code = PLT) 324 10\S\3/uL 130-400 MPV (test code = MPV) 9.5 fL 9.4-12.4 NEUTROP # (test code = NE#) 3.5 10\S\3/uL 1.6-8.0 LYMPH # (test code = LY#) 1.9 10\S\3/uL 1.1-3.5 MONOCYTE # (test code = MO#) 0.5 10\S\3/uL 0.0-1.1 EOSINOPH # (test code = EO#) 0.0 10\S\3/uL 0.0-0.7 BASOPHIL # (test code = BA#) 0.0 10\S\3/uL 0.0-0.3 IG # (test code = IG#) 0.01 10\S\3/uL 0.00-0.06 NRBC # (test code = NRBC#) 0.00 10\S\3/uL 0.00-0.01 NEUTROPH % (test code = NE%) 59.0 % 35.0-73.0 LYMPH % (test code = LY%) 31.4 % 20.0-55.0 MONO % (test code = MO%) 8.2 % 2.5-10.0 EOSINOPH % (test code = EO%) 0.7 % 0.0-5.0 BASOPHIL % (test code = BA%) 0.5 % 0.0-2.0 IG % (test code = IG%) 0.2 % 0.0-0.8 NRBC% (test code = NRBC%) 0.0 % 0.0-0.2 MANDIFF (test code = MDIFF) NO NO RBC MORPH (test code = RBCMOR) NORMAL [id number] 20:52:00 Test Item Value Reference Range Interpretation Comments ACETAMINPH (test code = 94M) <10.0 ug/mL 10.0-30.0 ALCOHOL BLOOD (ETOH)2017-04-10 20:51:00 Test Item Value Reference Range Interpretation Comments ALCOHOL (test code = <10 mg/dL <=10 56A) Ref Range Change (test Please note the code = REF RANGE) change in reference range COMPREHENSIVE METABOLIC [id number] 20:46:00 Test Item Value Reference Range Interpretation Comments GLUCOSE (test code = 06D) 109 mg/dL 75-100 H SODIUM (test code = 01A) 139 mmol/L 136-145 POTASSIUM (test code = 01B) 3.8 mmol/L 3.6-5.1 CHLORIDE (test code = 04A) 104 mmol/L 98-107 CO2 (test code = 02A) 25 mmol/L 22-32 ANION GAP (test code = ANG) 13.8 mmol/L BUN (test code = 05D) 11 mg/dL 7-18 CREATININE (test code = 03E) 0.7 mg/dL 0.4-1.1 BUN/CREA (test code = BCR) 17 12-20 CALCIUM (test code = 09D) 9.4 mg/dL 8.3-9.5 BILI TOTAL (test code = 11A) 0.3 mg/dL 0.2-1.0 PROTEIN (test code = 07D) 7.4 g/dL 6.4-8.2 ALBUMIN (test code = 08D) 4.0 g/dL 3.5-4.8 GLOBULIN (test code = GLB) 3.4 g/dL 1.5-3.8 ALB/GLOB (test code = AGRR) 1.2 1.0-2.6 ALK PHOS (test code = 35A) 44 IU/L 42-121 AST (test code = 30A) 18 IU/L <=42 ALT (test code = 31A) 24 IU/L <=78 [id number] 20:41:00 Test Item Value Reference Range Interpretation Comments SALICYLATE (test code = 94B) <1.7 mg/dL 2.8-20.0 L DRUGS OF [id number] 20:36:00 Test Item Value Reference Range Interpretation Comments DRUG SCRN (test code URINE DRUG SCREEN = HDOA) This is an unconfirmed screening result and should not be used for non-medical purposes CANNABINOD (test code Negative NEGATIVE = 88C) AMPHETAMINE (test Negative NEGATIVE code = 84A) BENZODIAZP (test code Negative NEGATIVE = 86A) BARBITURAT (test code Negative NEGATIVE = 85A) OPIATES (test code = Negative NEGATIVE 92B) COCAINE (test code = Negative NEGATIVE 87A) PHENCYCLID (test code Negative NEGATIVE = 66A) METHADONE (test code Negative NEGATIVE = 64A) DOAH (test code = DOAH) *URINE DRUG SCREEN Cut-off values are as follows: Cannabinoids 50 ng/mL Cocaine 300 ng/mL Amphetamines 1000 ng/mL Phencyclidine 25 ng/mL Benzodiazepines 200 ng.mL Methadone 300 ng/mL Barbiturates 200 ng/mL Opiates 2000 ng/mL SERUM [id number] 20:35:00 Test Item Value Reference Range Interpretation Comments PREG SRM (test code = PGS) NEGATIVE NEGATIVE [id number] 20:29:00 Test Item Value Reference Range Interpretation Comments COLOR (test code = COLU) YELLOW YELLOW CLARITY (test code = CLA) CLEAR CLEAR GLUCOSE UR (test code = UA GLUCOSE) NEGATIVE NEGATIVE BILI UR (test code = BILE) NEGATIVE NEGATIVE KETONES UR (test code = RAVI) NEGATIVE NEGATIVE SP GRAVITY (test code = SPGR) 1.006 1.005-1.030 PH UR (test code = PH) 7.0 4.5-8.0 PROTEIN UR (test code = PU) NEGATIVE NEGATIVE UROBIL UR (test code = UROQ) 0.2 EU/dL 0.2-1.0 NITRITE UR (test code = NITRITE) NEGATIVE NEGATIVE BLOOD UR (test code = UA BLOOD) NEGATIVE NEGATIVE LEUK ES UR (test code = LEUK) NEGATIVE NEGATIVE CBC (INCLUDES AUTOMATED DIFFERENTIAL)2017-04-10 20:28:00 Test Item Value Reference Range Interpretation Comments WBC (test code = WBC) 6.7 10\S\3/uL 4.5-11.0 RBC (test code = RBC) 4.31 10\S\6/uL 4.30-5.70 HGB (test code = HBG) 13.1 g/dL 12.0-15.5 HCT (test code = HCT) 38.2 % 35.0-44.0 MCV (test code = MCV) 88.6 fL 81.0-99.0 MCH (test code = MCH) 30.4 pg 27.0-31.0 MCHC (test code = MCHC) 34.3 g/dL 32.0-36.0 RDW (test code = RDW) 12.2 % 11.5-14.5 PLT (test code = PLT) 300 10\S\3/uL 130-400 MPV (test code = MPV) 10.0 fL 9.4-12.4 NEUTROP # (test code = NE#) 2.9 10\S\3/uL 1.6-8.0 LYMPH # (test code = LY#) 2.8 10\S\3/uL 1.1-3.5 MONOCYTE # (test code = MO#) 0.6 10\S\3/uL 0.0-1.1 EOSINOPH # (test code = EO#) 0.2 10\S\3/uL 0.0-0.7 BASOPHIL # (test code = BA#) 0.0 10\S\3/uL 0.0-0.3 IG # (test code = IG#) 0.01 10\S\3/uL 0.00-0.06 NRBC # (test code = NRBC#) 0.00 10\S\3/uL 0.00-0.01 NEUTROPH % (test code = NE%) 44.1 % 35.0-73.0 LYMPH % (test code = LY%) 42.6 % 20.0-55.0 MONO % (test code = MO%) 9.6 % 2.5-10.0 EOSINOPH % (test code = EO%) 2.9 % 0.0-5.0 BASOPHIL % (test code = BA%) 0.6 % 0.0-2.0 IG % (test code = IG%) 0.2 % 0.0-0.8 NRBC% (test code = NRBC%) 0.0 % 0.0-0.2 MANDIFF (test code = MDIFF) NO NO
[2023-06-21] MEDS ORDERED: NA CHLORIDE 0.9% 1,000 ML ONE (15:29)
[2023-06-21 15:45] LABS: Absolute Lymphocytes (CBC) 2.8 K/uL (0.7-4.9); Hematocrit 38.3 % (36.0-45.0); Lymphocytes % 25.3 % (15.3-44.8); MPV 7.4 fL (7.6-11.3); Platelets 344 thou/uL (152-406); RBC Red Blood Cell Count 4.21 M/uL (3.86-4.86)
[2023-06-21 16:16] LABS: Albumin 3.7 g/dL (3.4-5.0); Bilirubin Total 0.2 mg/dL (0.2-1.0); Magnesium 1.6 mg/dL (1.6-2.4); Potassium 3.3 mEq/L (3.5-5.1)
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
--- NOTE | 2023-06-21 16:43 | RAD REPORT ---
EXAM DESCRIPTION: USExtrem Venous W Compress Bil06/21/2023 4:11 pm CLINICAL HISTORY: Leg pain COMPARISON: none FINDINGS: The common femoral, superficial femoral, greater saphenous, popliteal and posterior tibial veins bilaterally are compressible and demonstrate augmentation. Doppler demonstrates good flow. Grayscale, color and spectral analysis performed on all vessels IMPRESSION: No evidence of deep venous thrombosis involving either lower extremity.
[2023-06-21] MEDS ORDERED: KETOROLAC 30 MG/ML INJ ONE (16:45)
[2023-06-21] MEDS ORDERED: POTASSIUM CL SA 10 MEQ TAB PO ONE (16:45)
[2023-06-21 17:35] VITALS: TEMP 98.5
[2023-06-21 17:36] VITALS: BP 129/81; O2SAT 99
== END 2023-06-21 17:04 | disposition home or self-care (01) ==
LOC: ER 14:47
DX: M79.10 Myalgia, unspecified site (principal); Z88.0 Allergy status to penicillin
CPT/HCPCS: 85025; 36415; 83735; 80053; 93970; J7030; 96360; 96361; 96372; 99284

== ENCOUNTER 2024-07-04 08:55 | Emergency (ER) | payer OTHER ==
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
[2024-07-04] MEDS ORDERED: dexAMETHasone 10 MG/ML VIAL ONE (09:33)
[2024-07-04 10:10] VITALS: BP 125/89; TEMP 98; O2SAT 97
== END 2024-07-04 09:47 | disposition home or self-care (01) ==
LOC: ER 08:55
DX: R21 Rash and other nonspecific skin eruption (principal)
CPT/HCPCS: 96372; 99284; J1100